=== PATIENT | male | born 1990 | race Caucasian/White ===

== ENCOUNTER → 2016-10-17 07:18 | Emergency (ER) | payer BC ==
[~2016-10-17 07:18] MED LIST: Azithromycin TAB* 250 MG PO ONE; Ketorolac INJ* 30 MG/ML 1 ML VIAL IV ONE; Morphine INJ* 4 MG/ML 1 ML SYRINGE IV ONE; oxyCODONE/Acetamin 5/325 MG* TAB PO ONE
[2016-10-17 08:18] LABS: Hematocrit 43 % (42-52); Hemoglobin 14.7 g/dl (14.0-18.0); Mean Corpuscular HGB Conc 34 g/dl (31-36); Mean Corpuscular Hemoglobin 31 pg (27-31); Mean Corpuscular Volume 91 fL (80-94); Mean Platelet Volume 9 um3 (7.4-10.4); Red Blood Count 4.75 10^6/ul (4.0-5.4); Red Cell Distribution Width 14 % (10.5-15); White Blood Count 7.4 10^3/ul (3.5-10.8)
[2016-10-17 08:36] LABS: ALT 17 U/L (7-52); AST 12 U/L (13-39); Albumin 4.3 g/dL (3.2-5.2); Alkaline Phosphatase 46 U/L (34-104); Anion Gap 5 mmol/L (2-11); Blood Urea Nitrogen 18 mg/dL (6-24); C Reactive Protein < 1.00 mg/L (< 5.00); CO2 Carbon Dioxide 27 mmol/L (22-32); Calcium 9.3 mg/dL (8.6-10.3); Chloride 102 mmol/L (101-111); EGFR African American 110.4 (>60); EGFR Non-African American 85.8 (>60); Globulin 2.4 g/dL (2-4); Glucose 90 mg/dL (70-100); Lipase 29 U/L (11.0-82.0); Sodium 134 mmol/L (133-145); Total Protein 6.7 g/dL (6.4-8.9)
--- NOTE | 2016-10-17 08:58 | RAD ---
Indication: LEFT inguinal pain. Assess for lymph node or cyst. Comparison: July 17, 2015 CT. Technique: Ultrasound of the LEFT inguinal region corresponding with the palpable lump. Report: Corresponding with the palpable lump a 1.0 x 0.7 x 1.0 cm wider than tall well-circumscribed partially anechoic lesion with low-level internal echoes devoid of intrinsic vascularity is identified with a well-defined posterior wall and posterior acoustic enhancement. The constellation of findings is consistent with a mildly complex cyst. This cyst appears within the inguinal canal. No bowel loops or other additional abnormality within the inguinal canal visualized. No adjacent lesions evident. IMPRESSION: 1.0 cm maximum dimension mildly complex cystic lesion within the LEFT inguinal canal. No corresponding abnormality evident on the July 17, 2015 CT. Correlate with clinical assessment and consider surgical versus urologic referral as deemed appropriate.
[2016-10-17 09:59] LABS: Urine Bacteria Absent (Absent); Urine Bilirubin Negative (Negative); Urine Glucose Negative (Negative); Urine Nitrite Negative (Negative)
[2016-10-17 11:58] VITALS: BP 120/74
--- NOTE | 2016-10-18 08:49 | ED ---
Donnie Auguste Alfonso, scribed for Chano Lopes MD on 10/17/16 at 0727 . Skin Complaint - HPI Summary HPI Summary: This patient is a 26 year old M presenting to [facility] with a chief complaint of a hernia or cyst at the LLQ abdomen since two weeks ago. Pt rates the pain 8/ 10 in severity. Symptoms aggravated and alleviated by nothing. Sx not alleviated by ibuprofen. Pt reports insomnia and swelling at the site. Pt denies penile discharge. PSHx of appendectomy last year. - History of Current Complaint Chief Complaint: EDRashSkinAbscess Stated Complaint: ABSCESS Hx Obtained From: Patient Onset/Duration: Started Weeks Ago - 2, Still Present Timing: Constant Onset Severity: Severe Current Severity: Severe Pain Intensity: 8 Pain Scale Used: 0-10 Numeric Skin Location: Abdomen - LLQ Character: Swelling Aggravating Symptom(s): Nothing Alleviating Symptom(s): Nothing - Additional Pertinent History Primary Care Physician: [id number] - Allergy/Home Medications Allergies/Adverse Reactions: Allergies Allergy/AdvReac Type Severity Reaction Status Date / Time Sucralfate [From Carafate] Allergy Hives Verified 07/16/15 21:53 PMH/Surg Hx/FS Hx/Imm Hx Endocrine/Hematology History: Denies: Hx Diabetes Cardiovascular History: Denies: Hx Congestive Heart Failure, Hx Hypertension Respiratory History: Reports: Hx Asthma - as a child, no longer has, Hx Seasonal Allergies GI History: Reports: Other GI Disorders - HX OF ULCERS History: Denies: Hx Renal Disease Musculoskeletal History: Reports: Hx Arthritis - right knee, Hx Tendonitis - left knee - Surgical History Surgery Procedure, Year, and Place: Appendectomy Infectious Disease History: Denies: Traveled Outside the [place] in Last 30 Days - Family History Known Family History: Positive: None - reviewed & noncontributory, Seizure Disorder, Other - CVA, - Social History Alcohol Use: Occasionally Hx Substance Use: No Substance Use Type: Reports: None Hx Tobacco Use: Yes Smoking Status (MU): Former Smoker Review of Systems Negative: Fever Genitourinary: Other - Negative penile discharge. Skin: Other - Positive LLQ "a hernia or cyst" with swelling at the site. Neurological: Other - Positive insomnia All Other Systems Reviewed And Are Negative: Yes Physical Exam - Summary Physical Exam Summary: VITAL SIGNS: Reviewed. GENERAL: Patient is a well-developed and nourished male who is lying comfortable in the stretcher. Patient is not in any acute respiratory distress. HEAD AND FACE: No signs of trauma. No ecchymosis, hematomas or skull depressions. No sinus tenderness. EYES: PERRLA, EOMI x 2, No injected conjunctiva, no nystagmus. EARS: Hearing grossly intact. Ear canals and tympanic membranes are within normal limits. MOUTH: Oropharynx within normal limits. NECK: Supple, trachea is midline, no adenopathy, no JVD, no carotid bruit, no c- spine tenderness, neck with full ROM. CHEST: Symmetric, no tenderness at palpation LUNGS: Clear to auscultation bilaterally. No wheezing or crackles. CVS: Regular rate and rhythm, S1 and S2 present, no murmurs or gallops appreciated. ABDOMEN: Soft, non-tender. No signs of distention. No rebound no guarding, and no masses palpated. Bowel sounds are normal. EXTREMITIES: FROM in all major joints, no edema, no cyanosis or clubbing. NEURO: Alert and oriented x 3. No acute neurological deficits. Speech is normal and follows commands. SKIN: Dry and warm. Positive swollen and tender lymph node in left inguinal area. : Circumcised penis, both testicles are descended. No masses are appreciated. Positive cremasteric reflex. Triage Information Reviewed: Yes Vital Signs On Initial Exam: Initial Vitals Temp Pulse Resp BP Pulse Ox 97.3 F 59 16 125/65 100 10/17/16 07:19 10/17/16 07:19 10/17/16 07:19 10/17/16 07:19 10/17/16 07:19 Vital Signs Reviewed: Yes Diagnostics - Vital Signs Vital Signs Temp Pulse Resp BP Pulse Ox 10/17/16 07:19 97.3 F 59 16 125/65 100 - Laboratory Lab Results: Lab Results 10/17/16 10/17/16 10/17/16 Range/Units 08:00 08:00 08:00 WBC 7.4 (3.5-10.8) 10^3/ul RBC 4.75 (4.0-5.4) 10^6/ul Hgb 14.7 (14.0-18.0) g/dl Hct 43 (42-52) % MCV 91 (80-94) fL MCH 31 (27-31) pg MCHC 34 (31-36) g/dl RDW 14 (10.5-15) % Plt Count 270 (150-450) 10^3/ul MPV 9 (7.4-10.4) um3 Neut % (Auto) 55.9 (38-83) % Lymph % (Auto) 35.1 (25-47) % [place] % (Auto) 4.8 (1-9) % Eos % (Auto) 3.6 (0-6) % Baso % (Auto) 0.6 (0-2) % Absolute Neuts (auto) 4.1 (1.5-7.7) 10^3/ul Absolute Lymphs (auto) 2.6 (1.0-4.8) 10^3/ul Absolute Monos (auto) 0.4 (0-0.8) 10^3/ul Absolute Eos (auto) 0.3 (0-0.6) 10^3/ul Absolute Basos (auto) 0 (0-0.2) 10^3/ul Absolute Nucleated RBC 0 10^3/ul Nucleated RBC % 0 Sodium 134 (133-145) mmol/L Potassium 4.0 (3.5-5.0) mmol/L Chloride 102 (101-111) mmol/L Carbon Dioxide 27 (22-32) mmol/L Anion Gap 5 (2-11) mmol/L BUN 18 (6-24) mg/dL Creatinine 1.06 (0.67-1.17) mg/dL Est GFR ( Amer) 110.4 (>60) Est GFR (Non-Af Amer) 85.8 (>60) BUN/Creatinine Ratio 17.0 (8-20) Glucose 90 (70-100) mg/dL Lactic Acid 0.7 (0.5-2.0) mmol/L Calcium 9.3 (8.6-10.3) mg/dL Total Bilirubin 0.50 (0.2-1.0) mg/dL AST 12 L (13-39) U/L ALT 17 (7-52) U/L Alkaline Phosphatase 46 (34-104) U/L C-Reactive Protein < 1.00 (< 5.00) mg/L Total Protein 6.7 (6.4-8.9) g/dL Albumin 4.3 (3.2-5.2) g/dL Globulin 2.4 (2-4) g/dL Albumin/Globulin Ratio 1.8 (1-3) Lipase 29 (11.0-82.0) U/L Urine Color Urine Appearance Urine pH (5-9) Ur Specific [place] (1.010-1.030) Urine Protein (Negative) Urine Ketones (Negative) Urine Blood (Negative) Urine Nitrate (Negative) Urine Bilirubin (Negative) Urine Urobilinogen (Negative) Ur Leukocyte Esterase (Negative) Urine WBC (Auto) (Absent) Urine RBC (Auto) (Absent) Urine Bacteria (Absent) Urine Glucose (Negative) 10/17/16 Range/Units 08:45 WBC (3.5-10.8) 10^3/ul RBC (4.0-5.4) 10^6/ul Hgb (14.0-18.0) g/dl Hct (42-52) % MCV (80-94) fL MCH (27-31) pg MCHC (31-36) g/dl RDW (10.5-15) % Plt Count (150-450) 10^3/ul MPV (7.4-10.4) um3 Neut % (Auto) (38-83) % Lymph % (Auto) (25-47) % [place] % (Auto) (1-9) % Eos % (Auto) (0-6) % Baso % (Auto) (0-2) % Absolute Neuts (auto) (1.5-7.7) 10^3/ul Absolute Lymphs (auto) (1.0-4.8) 10^3/ul Absolute Monos (auto) (0-0.8) 10^3/ul Absolute Eos (auto) (0-0.6) 10^3/ul Absolute Basos (auto) (0-0.2) 10^3/ul Absolute Nucleated RBC 10^3/ul Nucleated RBC % Sodium (133-145) mmol/L Potassium (3.5-5.0) mmol/L Chloride (101-111) mmol/L Carbon Dioxide (22-32) mmol/L Anion Gap (2-11) mmol/L BUN (6-24) mg/dL Creatinine (0.67-1.17) mg/dL Est GFR ( Amer) (>60) Est GFR (Non-Af Amer) (>60) BUN/Creatinine Ratio (8-20) Glucose (70-100) mg/dL Lactic Acid (0.5-2.0) mmol/L Calcium (8.6-10.3) mg/dL Total Bilirubin (0.2-1.0) mg/dL AST (13-39) U/L ALT (7-52) U/L Alkaline Phosphatase (34-104) U/L C-Reactive Protein (< 5.00) mg/L Total Protein (6.4-8.9) g/dL Albumin (3.2-5.2) g/dL Globulin (2-4) g/dL Albumin/Globulin Ratio (1-3) Lipase (11.0-82.0) U/L Urine Color Yellow Urine Appearance Clear Urine pH 5.0 (5-9) Ur Specific [place] 1.020 (1.010-1.030) Urine Protein Negative (Negative) Urine Ketones Negative (Negative) Urine Blood Negative (Negative) Urine Nitrate Negative (Negative) Urine Bilirubin Negative (Negative) Urine Urobilinogen Negative (Negative) Ur Leukocyte Esterase Trace H (Negative) Urine WBC (Auto) Trace(0-5/hpf) (Absent) Urine RBC (Auto) Absent (Absent) Urine Bacteria Absent (Absent) Urine Glucose Negative (Negative) Result Diagrams: 10/17/16 08:00 10/17/16 08:00 Lab Statement: Any lab studies that have been ordered have been reviewed, and results considered in the medical decision making process. - Additional Comments Diagnostic Additional Comments: Soft tissue US reveals, per radiologist, 1.0 cm maximum dimension mildly complex cystic lesion within the LEFT inguinal canal. No corresponding abnormality evident on the July 17, 2015 CT. Correlate with clinical assessment and consider surgical versus urologic referral as deemed appropriate. Course/Dx - Course Course Of Treatment: This patient is a 26 year old M presenting to [facility] with a chief complaint of a hernia or cyst at the LLQ abdomen since two weeks ago. Pt rates the pain 8/10 in severity. Symptoms aggravated and alleviated by nothing. Sx not alleviated by ibuprofen. Pt reports insomnia and swelling at the site. Pt denies penile discharge. PSHx of appendectomy last year. Assessment/Plan: Test results within normal limits. There is no increased blood cell count and CRP is normal. Soft tissue US reveals, per radiologist, 1.0 cm maximum dimension mildly complex cystic lesion within the LEFT inguinal canal. No corresponding abnormality evident on the July 17, 2015 CT. Correlate with clinical assessment and consider surgical versus urologic referral as deemed appropriate. Patient denied any penile discharge and no complaints with testicular pain. The patient has a cat at home. Therefore, the patient may be dealing with scratch cat syndrome with the painful lymph node in the left inguinal area. I discussed the case with Dr. Reeder and he agrees. He will be discharged home with azithromycin and pain medication. Patient will follow up with PCP and if needed with Dr. Reeder. Patient is hemodynamically stable and A& Ox3. I discussed all the findings and test results with the patient. Patient was instructed to return to the emergency room immediately if any of the symptoms return or worsens. Plan of care was discussed with the patient and understands and agrees. All questions were answered at patient satisfaction. There were no further complaints or concerns. Lung exam before discharge: CTA B /L. Good air exchange. No wheezing or crackles heard. CVS: S1 and S2 present. No murmurs appreciated. Patient is alert and oriented x 3. Patient is hemodynamically stable. Patient will be discharged home with follow up PCP in the next 2-3 days - Diagnoses Provider Diagnoses: Lymph node pain - Physician Notifications Discussed Care Of Patient With: Brayden Reeder Time Discussed With Above Provider: 11:20 Instructed by Provider To: Other - Dr. Reeder ([facility]) recommended d/c home after evaluating patient in the ED. Discharge - Discharge Plan Condition: Stable Disposition: HOME Prescriptions: Azithromycin TAB* [Zithromax TAB (Z-KARY) 250 mg #6 tabs] 250 mg PO DAILY #4 tab Hydrocodone-Acetaminophen [Isabella 5-325 mg] 1 tab PO Q6H PRN #10 tab MDD 4 PRN Reason: Pain Patient Education Materials: Lymphadenopathy (ED) Referrals: [facility] [place] PHYSICIAN REFERRAL [Outside] - 2 Days The documentation as recorded by the Donnie euceda Alfonso accurately reflects the service I personally performed and the decisions made by me, Chano Lopes MD.
== END | disposition home or self-care (01) ==
LOC: ED 07:18
DX: R19.09 Other intra-abdominal and pelvic swelling, mass and lump (principal)
CPT/HCPCS: 36415; 80053; 81003; 81015; 83605; 83690; 85025; 86140; 87040; 87086; 96374; 96375; 99282; A9270-GY; J1885

== ENCOUNTER 2017-05-26 22:01 | Emergency (ER) | payer BC ==
[2017-05-27] MEDS ORDERED: Al Hydrox/Mg Hydrox/Simet LIQ* 30 ML UDC PO ONE ×2 (00:30→00:47)
[2017-05-27] MEDS ORDERED: Al Hydrox/Mg Hydrox/Simet LIQ* 30 ML UDC ONE (00:32)
[2017-05-27] MEDS ORDERED: NS 0.9% 1000 ML* 1,000 ML IV ONE ×2 (00:47→02:27)
[2017-05-27] MEDS ORDERED: Famotidine IV* 10 MG/ML 2 ML (20 mg) IV ONE (00:47)
[2017-05-27] MEDS ORDERED: Ondansetron INJ* 2 MG/ML VIAL IV ONE (00:49)
[2017-05-27 01:46] LABS: ABS Basophils 0 10^3/ul (0-0.2); ABS Eosinophils 0.1 10^3/ul (0-0.6); ABS Monocytes 0.4 10^3/ul (0-0.8); ABS Nucleated RBC 0 10^3/ul; Eosinophil % 0.6 % (0-6); Hematocrit 45 % (42-52); Hemoglobin 15.3 g/dl (14.0-18.0); Lymphocyte % 7.7 % (25-47); Mean Corpuscular HGB Conc 34 g/dl (31-36); Mean Corpuscular Hemoglobin 31 pg (27-31); Mean Corpuscular Volume 90 fL (80-94); Mean Platelet Volume 9 um3 (7.4-10.4); Nucleated Red Blood Cells % 0; Platelet Count 291 10^3/ul (150-450); Red Blood Count 5.03 10^6/ul (4.0-5.4); Red Cell Distribution Width 14 % (10.5-15); White Blood Count 12.5 10^3/ul (3.5-10.8)
--- NOTE | 2017-05-27 01:54 | ED ---
Abdominal Pain/Male - HPI Summary HPI Summary: Patient presents to the ED with chief complaint of epigastric pain, nausea, vomiting since 4:30 this afternoon. History of ulcer diagnosed 11 years ago. He takes omeprazole 40 mg daily. He has been seen in the ED for this reason before. He states that usually manifests as epigastric pain and nausea, but rarely vomiting. He had one episode last month of nausea, vomiting and epigastric pain. He states that in the ED he had an EKG done and was told it was "pancreas related." He drinks alcohol approximately once per month. He does not see a GI physician. The epigastric pain never radiates to the back. He has been worked up for cardiac issues and always negative. He denies fevers , sweats, chills, diarrhea, constipation. Denies any recent illness. He states this occurs approximately once every few months, but it usually only lasts several hours, this episode lasting approximately 8 hours so wanted to make sure he was not dehydrated. Symptoms are aggravated by food and alleviated by nothing. - History of Current Complaint Chief Complaint: EDAbdPain Stated Complaint: VOMITING Time Seen by Provider: 05/27/17 00:30 Hx Obtained From: Patient Onset/Duration: Sudden Onset Timing: Constant Severity Initially: Moderate Severity Currently: Moderate Pain Intensity: 7 Pain Scale Used: 0-10 Numeric Location: Epigastric Radiates: No Character: Sharp, Burning Aggravating Factor(s): Food Associated Signs And Symptoms: Positive: Vomiting - Allergies/Home Medications Allergies/Adverse Reactions: Allergies Allergy/AdvReac Type Severity Reaction Status Date / Time sucralfate AdvReac Intermediate Hives Verified 05/27/17 03:53 PMH/Surg Hx/FS Hx/Imm Hx Previously Healthy: Yes Endocrine/Hematology History: Denies: Hx Diabetes Cardiovascular History: Denies: Hx Congestive Heart Failure, Hx Hypertension Respiratory History: Reports: Hx Asthma - as a child, no longer has, Hx Seasonal Allergies GI History: Reports: Other GI Disorders - HX OF ULCERS History: Denies: Hx Renal Disease Musculoskeletal History: Reports: Hx Arthritis - right knee, Hx Tendonitis - left knee - Surgical History Surgery Procedure, Year, and Place: Appendectomy - Immunization History Hx Pertussis Vaccination: No Immunizations Up to Date: Unable to Obtain/Confirm Infectious Disease History: No Infectious Disease History: Denies: Traveled Outside the [place] in Last 30 Days - Family History Known Family History: Positive: None - reviewed & noncontributory, Seizure Disorder, Other - CVA, - Social History Occupation: Employed Full-time Lives: With Family Alcohol Use: Occasionally Hx Substance Use: No Substance Use Type: Reports: None Hx Tobacco Use: Yes Smoking Status (MU): Former Smoker Review of Systems Constitutional: Negative Negative: Fever, Chills, Fatigue, Skin Diaphoresis Eyes: Negative Cardiovascular: Negative Respiratory: Negative Positive: Abdominal Pain, Vomiting, Nausea Genitourinary: Negative Positive: no symptoms reported, see HPI Neurological: Negative All Other Systems Reviewed And Are Negative: Yes Physical Exam Triage Information Reviewed: Yes Vital Signs On Initial Exam: Initial Vitals Temp Pulse Resp BP Pulse Ox 98.6 F 88 20 118/79 100 05/26/17 22:21 05/26/17 22:21 05/26/17 22:21 05/26/17 22:21 05/26/17 22:21 Vital Signs Reviewed: Yes Appearance: Positive: Well-Appearing, Well-Nourished Skin: Positive: Warm, Skin Color Reflects Adequate Perfusion Head/Face: Positive: Normal Head/Face Inspection Eyes: Positive: EOMI, NAA Neck: Positive: Supple, No Lymphadenopathy Respiratory/Lung Sounds: Positive: Clear to Auscultation, Breath Sounds Present Cardiovascular: Positive: RRR, Pulses are Symmetrical in both Upper and Lower Extremities Musculoskeletal: Positive: Strength/ROM Intact Neurological: Positive: Speech Normal Psychiatric: Positive: Normal, Affect/Mood Appropriate AVPU Assessment: Alert Diagnostics - Vital Signs Vital Signs Temp Pulse Resp BP Pulse Ox 05/27/17 01:30 65 119/72 100 05/27/17 01:26 70 100 05/27/17 01:24 101/74 05/26/17 22:21 98.6 F 88 20 118/79 100 - Laboratory Lab Results: Lab Results 05/27/17 Range/Units 01:29 WBC 12.5 H (3.5-10.8) 10^3/ul RBC 5.03 (4.0-5.4) 10^6/ul Hgb 15.3 (14.0-18.0) g/dl Hct 45 (42-52) % MCV 90 (80-94) fL MCH 31 (27-31) pg MCHC 34 (31-36) g/dl RDW 14 (10.5-15) % Plt Count 291 (150-450) 10^3/ul MPV 9 (7.4-10.4) um3 Neut % (Auto) 88.1 H (38-83) % Lymph % (Auto) 7.7 L (25-47) % [place] % (Auto) 3.4 (0-7) % Eos % (Auto) 0.6 (0-6) % Baso % (Auto) 0.2 (0-2) % Absolute Neuts (auto) 11.0 H (1.5-7.7) 10^3/ul Absolute Lymphs (auto) 1.0 (1.0-4.8) 10^3/ul Absolute Monos (auto) 0.4 (0-0.8) 10^3/ul Absolute Eos (auto) 0.1 (0-0.6) 10^3/ul Absolute Basos (auto) 0 (0-0.2) 10^3/ul Absolute Nucleated RBC 0 10^3/ul Nucleated RBC % 0 Result Diagrams: 05/27/17 01:29 05/27/17 01:29 Lab Statement: Any lab studies that have been ordered have been reviewed, and results considered in the medical decision making process. Abdominal Pain Fem Course/Dx - Course Course Of Treatment: During the course of treatment the patient was evaluated for epigastric pain secondary to testicles are diagnosed 11 years ago but has not followed up since. He takes omeprazole 40 mg daily. He usually has one episode every 4-6 months of epigastric pain associated with nausea and intermittent vomiting which only lasts a few hours. This time, episodes have lasted approximately 8 hours. He denies having any any recent CT scans. Denies constipation, diarrhea, any other abdominal pain. Denies any abdominal surgeries. Labs obtained, 1 L fluids given, 2 mg Maalox given on arrival and he proceeded to vomit most of that up. He is given another 30 mg cc. Pepcid 40 mg IV and Zofran 4 mg. he continues to remain nauseous and vomiting. He is given another liter of fluids and Reglan 10 mg IV. Labs obtained and are all within normal limits except for a slightly elevated white count at 12.5. Signed out to Dr. Hernandez at 2:30a pending improvement of symptoms. Discharge papers printed. - Diagnoses Differential Diagnosis/HQI/PQRI: Pancreatitis, Peptic Ulcer Disease Provider Diagnoses: Peptic ulcer Discharge - Discharge Plan Condition: Stable Disposition: HOME Prescriptions: Ondansetron ODT TAB* [Zofran 4 MG Odt TAB*] 4 mg PO Q6H PRN #12 tab.odt MDD 4 PRN Reason: Nausea Patient Education Materials: Cyclic Vomiting Syndrome (ED) Referrals: Ji Almanza MD [Medical Doctor] - Cruz Eaton MD [Primary Care Provider] - Additional Instructions: Please follow-up with GI doctor Cami As discussed, I believe this may be a cyclic vomiting syndrome I have given you Zofran for nausea and vomiting Drink plenty of fluids Maalox plus is [id number], 30 mls every 4 hours for any epigastric pain
[2017-05-27] MEDS ORDERED: Metoclopramide IV* 5 MG/ML 2 ML VIAL IV ONE (02:01)
[2017-05-27] MEDS ORDERED: PROCHLORPERAZINE INJ 5 MG/ML 2 ML VIAL IV ONE (02:21)
[2017-05-27] MEDS ORDERED: diPHENhydraMINE IV* 50 MG/ML 1 ml VIAL (BENADRYL) IV ONE (02:26)
[2017-05-27] MEDS ORDERED: Ketorolac INJ* 30 MG/ML 1 ML VIAL IV PUSH ONE (02:26)
[2017-05-27 05:33] VITALS: BP 103/43
== END 2017-05-27 05:40 | disposition home or self-care (01) ==
LOC: ED 22:01
DX: R10.13 Epigastric pain (principal); R11.2 Nausea with vomiting, unspecified; Z87.19 Personal history of other diseases of the digestive system; Z88.8 Allergy status to other drugs, medicaments and biological substances; Z87.891 Personal history of nicotine dependence
CPT/HCPCS: 36415; 80053; 82150; 82550; 83605; 83690; 83735; 85025; 86140; 96361; 96374; 96375; 99285; A9270-GY; J0780; J1200; J1885; J2405

== ENCOUNTER 2017-07-16 17:57 | Emergency (ER) | payer BC ==
[2017-07-16 20:38] LABS: ABS Basophils 0 10^3/ul (0-0.2); ABS Eosinophils 0 10^3/ul (0-0.6); ABS Lymphocytes 1.1 10^3/ul (1.0-4.8); ABS Monocytes 0.4 10^3/ul (0-0.8); ABS Neutrophils 8.5 10^3/ul (1.5-7.7); ABS Nucleated RBC 0 10^3/ul; Eosinophil % 0.4 % (0-6); Hematocrit 45 % (42-52); Hemoglobin 15.7 g/dl (14.0-18.0); Lymphocyte % 10.9 % (25-47); Mean Corpuscular HGB Conc 35 g/dl (31-36); Mean Corpuscular Hemoglobin 31 pg (27-31); Mean Corpuscular Volume 88 fL (80-94); Mean Platelet Volume 8.6 um3 (7.4-10.4); Nucleated Red Blood Cells % 0; Platelet Count 278 10^3/ul (150-450); Red Blood Count 5.07 10^6/ul (4.0-5.4); Red Cell Distribution Width 14 % (10.5-15); White Blood Count 10.1 10^3/ul (3.5-10.8)
[2017-07-16] MEDS ORDERED: NS 0.9% 1000 ML* 1,000 ML IV ONE (20:41)
[2017-07-16] MEDS ORDERED: Metoclopramide IV* 5 MG/ML 2 ML VIAL IV SLOW PU ONE (20:43)
[2017-07-16] MEDS ORDERED: Morphine VIAL* 4 MG/ML VIAL (1 ml vial) IV ONE (20:43)
[2017-07-16 20:54] LABS: EGFR Non-African American 73.8 (>60)
--- NOTE | 2017-07-16 21:20 | RAD ---
INDICATION: Chest pain. COMPARISON: Comparison is made with a prior study from April 08, 2013. TECHNIQUE: A portable view of the chest was obtained. FINDINGS: Cardiac and mediastinal contours appear to be within normal limits. The lungs are clear. No pleural effusion is seen. IMPRESSION: NO EVIDENCE FOR ACUTE DISEASE.
--- NOTE | 2017-07-17 00:07 | ED ---
Kathy Auguste Thomas, scribed for Rupesh Hernandez MD on 07/16/17 at 2056 . HPI Chest Pain - HPI Summary HPI Summary: The patient is a 27 year old male complaining of sharp central chest pain upon inspiration that woke him up this morning at 02:00. The chest pain had radiation to his jaw earlier in the day. He began to vomit at 09:00 today. He is nauseous in the ED. - History of Current Complaint Chief Complaint: EDChestPainROMI Time Seen by Provider: 07/16/17 20:33 Hx Obtained From: Patient Onset/Duration: Started Hours Ago, Still Present Timing: Constant Current Severity: Severe Pain Intensity: 9 Pain Scale Used: 0-10 Numeric Chest Pain Location: Discrete at: - central Chest Pain Radiates: Yes Chest Pain Radiates To:: Jaw Character: Sharp/Stabbing Aggravating Factor(s): Nothing Alleviating Factor(s): Nothing Associated Signs and Symptoms: Positive: Chest Pain, Nausea, Vomiting. Negative : Fever - Additional Pertinent History Primary Care Physician: MARLENA - Allergy/Home Medications Allergies/Adverse Reactions: Allergies Allergy/AdvReac Type Severity Reaction Status Date / Time sucralfate AdvReac Intermediate Hives Verified 05/27/17 03:53 Home Medications: Home Medications LoraTADine TAB(NF) [Claritin 10 MG TAB(NF)] 10 mg PO DAILY 07/16/17 [History Confirmed 07/16/17] Omeprazole CAP* [Prilosec CAP* 20 MG] 20 mg PO DAILY 07/16/17 [History Confirmed 07/16/17] PMH/Surg Hx/FS Hx/Imm Hx Endocrine/Hematology History: Denies: Hx Diabetes Cardiovascular History: Denies: Hx Congestive Heart Failure, Hx Hypertension Respiratory History: Reports: Hx Asthma - as a child, no longer has, Hx Seasonal Allergies GI History: Reports: Other GI Disorders - HX OF ULCERS History: Denies: Hx Renal Disease Musculoskeletal History: Reports: Hx Arthritis - right knee, Hx Tendonitis - left knee - Surgical History Surgery Procedure, Year, and Place: Appendectomy Infectious Disease History: No Infectious Disease History: Denies: Traveled Outside the [place] in Last 30 Days - Family History Known Family History: Positive: Seizure Disorder, Other - CVA - Social History Alcohol Use: Occasionally Hx Substance Use: No Substance Use Type: Reports: None Hx Tobacco Use: Yes Smoking Status (MU): Former Smoker Review of Systems Negative: Fever Positive: Chest Pain Positive: Vomiting, Nausea All Other Systems Reviewed And Are Negative: Yes Physical Exam - Summary Physical Exam Summary: VITAL SIGNS: Reviewed. GENERAL: Patient is a well-developed and nourished male who is lying comfortable in the stretcher. Patient is not in any acute respiratory distress. HEAD AND FACE: No signs of trauma. No ecchymosis, hematomas or skull depressions. No sinus tenderness. EYES: PERRLA, EOMI x 2, No injected conjunctiva, no nystagmus. EARS: Hearing grossly intact. Ear canals and tympanic membranes are within normal limits. MOUTH: Oropharynx within normal limits. NECK: Supple, trachea is midline, no adenopathy, no JVD, no carotid bruit, no c- spine tenderness, neck with full ROM. CHEST: Symmetric, no tenderness at palpation LUNGS: Clear to auscultation bilaterally. No wheezing or crackles. CVS: Regular rate and rhythm, S1 and S2 present, no murmurs or gallops appreciated. ABDOMEN: Soft. He has epigastric tenderness. No signs of distention. No rebound no guarding, and no masses palpated. Bowel sounds are normal. EXTREMITIES: FROM in all major joints, no edema, no cyanosis or clubbing. NEURO: Alert and oriented x 3. No acute neurological deficits. Speech is normal and follows commands. SKIN: Dry and warm Triage Information Reviewed: Yes Vital Signs On Initial Exam: Initial Vitals Temp Pulse Resp BP Pulse Ox 100.8 F 104 20 145/69 98 07/16/17 18:01 07/16/17 18:01 07/16/17 18:01 07/16/17 18:01 07/16/17 18:01 Vital Signs Reviewed: Yes Diagnostics - Vital Signs Vital Signs Temp Pulse Resp BP Pulse Ox 07/16/17 20:29 85 15 100 07/16/17 20:03 99.9 F 100 18 127/65 100 07/16/17 18:01 100.8 F 104 20 145/69 98 - Laboratory Lab Results: Lab Results 07/16/17 Range/Units 20:25 WBC 10.1 (3.5-10.8) 10^3/ul RBC 5.07 (4.0-5.4) 10^6/ul Hgb 15.7 (14.0-18.0) g/dl Hct 45 (42-52) % MCV 88 (80-94) fL MCH 31 (27-31) pg MCHC 35 (31-36) g/dl RDW 14 (10.5-15) % Plt Count 278 (150-450) 10^3/ul MPV 8.6 (7.4-10.4) um3 Neut % (Auto) 84.1 H (38-83) % Lymph % (Auto) 10.9 L (25-47) % [place] % (Auto) 4.4 (0-7) % Eos % (Auto) 0.4 (0-6) % Baso % (Auto) 0.2 (0-2) % Absolute Neuts (auto) 8.5 H (1.5-7.7) 10^3/ul Absolute Lymphs (auto) 1.1 (1.0-4.8) 10^3/ul Absolute Monos (auto) 0.4 (0-0.8) 10^3/ul Absolute Eos (auto) 0 (0-0.6) 10^3/ul Absolute Basos (auto) 0 (0-0.2) 10^3/ul Absolute Nucleated RBC 0 10^3/ul Nucleated RBC % 0 Result Diagrams: 07/16/17 20:25 07/16/17 20:25 Lab Statement: Any lab studies that have been ordered have been reviewed, and results considered in the medical decision making process. - Radiology CXR Xray Interpretation: No Acute Changes - Impression: No evidence for acute disease. Dr. Hernandez has reviewed this report. Radiology Interpretation Completed By: Radiologist - EKG 18:06 Cardiac Rate: NL EKG Rhythm: Sinus Rhythm - at 97 BPM Re-Evaluation - Re-Evaluation First Eval Re-Evaluation Time: 23:49 Change: Improved Comment: The patient feels better. Chest Pain Course/Dx - Course Assessment/Plan: The patient is a 27 year old male complaining of sharp central chest pain upon inspiration that woke him up this morning at 02:00. He also complains of nausea and vomiting. In the ED course, the patient was given IV fluids, Reglan, and morphine. Bloodwork, EKG, and CXR were obtained. The patient feels better at re-evaluation. He will be discharged home. The patient is diagnosed with vomiting and atypical chest pain. The patient is instructed to follow up with primary care. - Diagnoses Provider Diagnoses: Atypical chest pain, Vomiting Discharge - Sign-Out/Discharge Documenting (check all that apply): Discharge - Discharge Plan Condition: Stable Disposition: HOME Patient Education Materials: Chest Pain (ED), Acute Nausea and Vomiting (ED) Referrals: Cruz Eaton MD [Primary Care Provider] - 2 Days Additional Instructions: Follow up with your primary care physician in one to two days. Return to the emergency department for any new or worsening symptoms. The documentation as recorded by the Kathy euceda Thomas accurately reflects the service I personally performed and the decisions made by me, Rupesh Hernandez MD.
[2017-07-17 00:58] VITALS: BP 135/68
== END 2017-07-17 01:00 | disposition home or self-care (01) ==
LOC: ED 17:57
DX: R07.89 Other chest pain (principal); R11.2 Nausea with vomiting, unspecified; J45.909 Unspecified asthma, uncomplicated; Z88.8 Allergy status to other drugs, medicaments and biological substances; Z87.891 Personal history of nicotine dependence
CPT/HCPCS: 36415; 71045; 80053; 84484; 85025; 93005; 96374; 96375; 99284; J2270; J2765

== ENCOUNTER 2017-09-07 06:19 | Emergency (ER) | payer BC ==
[2017-09-07] MEDS ORDERED: NS 0.9% 1000 ML* 1,000 ML IV ONE (06:53)
[2017-09-07] MEDS ORDERED: Al Hydrox/Mg Hydrox/Simet LIQ* 30 ML UDC PO ONE (07:02)
[2017-09-07] MEDS ORDERED: Metoclopramide IV* 5 MG/ML 2 ML VIAL IV ONE (07:02)
[2017-09-07] MEDS ORDERED: Lidocaine 2% VISCOUS* 15 ML UDC PO ONE (07:02)
--- NOTE | 2017-09-07 07:15 | ED ---
GI/ HPI - HPI Summary HPI Summary: Pt. is a 27-year-old male who presents emergency department for nausea, vomiting and headache that started last night. Patient states he has a history of gastric ulcer and is currently taking omeprazole. He's been seen in the ER numerous times for similar symptoms. Patient states headache is new for him. Headache started after vomiting. Denies visual changes, numbness, tingling or weakness. It is worse with movement and vomiting. Patient also notes he did drink 5 beers and 1 shot of whiskey last night. He denies daily alcohol consumption. Denies drug use. Symptoms are moderate in severity. No current modifying factors. Otherwise denies recent illness, fever, cough, respiratory symptoms. - History of Current Complaint Hx Obtained From: Patient Pain Intensity: 7 - Additional Pertinent History Primary Care Physician: [id number] <Navneet Palma - Last Filed: 09/07/17 10:15> <Fern Morales - Last Filed: 09/11/17 00:36> - History of Current Complaint Chief Complaint: EDNauseaVomitDiarrh Time Seen by Provider: 09/07/17 06:53 Stated Complaint: VOMITING - Allergy/Home Medications Allergies/Adverse Reactions: Allergies Allergy/AdvReac Type Severity Reaction Status Date / Time sucralfate AdvReac Intermediate Hives Verified 09/07/17 09:03 PMH/Surg Hx/FS Hx/Imm Hx Previously Healthy: Yes Endocrine/Hematology History: Denies: Hx Diabetes Cardiovascular History: Denies: Hx Congestive Heart Failure, Hx Hypertension Respiratory History: Reports: Hx Asthma - as a child, no longer has, Hx Seasonal Allergies GI History: Reports: Other GI Disorders - HX OF ULCERS History: Denies: Hx Renal Disease Musculoskeletal History: Reports: Hx Arthritis - right knee, Hx Tendonitis - left knee - Surgical History Surgery Procedure, Year, and Place: Appendectomy Infectious Disease History: No Infectious Disease History: Denies: Traveled Outside the [place] in Last 30 Days - Family History Known Family History: Positive: None - reviewed & noncontributory, Seizure Disorder, Other - CVA - Social History Occupation: Employed Full-time Lives: With Family Alcohol Use: Occasionally Hx Substance Use: No Substance Use Type: Reports: None Hx Tobacco Use: Yes Smoking Status (MU): Former Smoker <Navneet Palma - Last Filed: 09/07/17 10:15> Review of Systems Constitutional: Negative Negative: Fever, Chills Eyes: Negative ENT: Negative Cardiovascular: Negative Respiratory: Negative Positive: Vomiting, Nausea. Negative: Abdominal Pain Genitourinary: Negative Positive: Headache All Other Systems Reviewed And Are Negative: Yes <Navneet Palma - Last Filed: 09/07/17 10:15> Physical Exam Triage Information Reviewed: Yes Vital Signs On Initial Exam: Initial Vitals Temp Pulse Resp BP Pulse Ox 97.9 F 72 20 132/73 100 09/07/17 06:21 09/07/17 06:21 09/07/17 06:21 09/07/17 06:21 09/07/17 06:21 Vital Signs Reviewed: Yes Appearance: Positive: Well-Appearing - Patient sitting up in bed, appears tired but nontoxic. Significant other present. Skin: Positive: Warm, Dry Head/Face: Positive: Normal Head/Face Inspection Eyes: Positive: Normal, EOMI, ANA ENT: Positive: Other - Mouth has dry lips are chapped Neck: Positive: Supple Respiratory/Lung Sounds: Positive: Clear to Auscultation, Breath Sounds Present Cardiovascular: Positive: Normal, RRR Abdomen Description: Positive: Nontender, Soft. Negative: McBurney's Point Tenderness Bowel Sounds: Positive: Present Neurological: Positive: Normal, CN Intact II-III Psychiatric: Positive: Affect/Mood Appropriate <Navneet Palma - Last Filed: 09/07/17 10:15> Vital Signs On Initial Exam: Initial Vitals Temp Pulse Resp BP Pulse Ox 97.9 F 72 20 132/73 100 09/07/17 06:21 09/07/17 06:21 09/07/17 06:21 09/07/17 06:21 09/07/17 06:21 <Fern Morales - Last Filed: 09/11/17 00:36> Diagnostics - Vital Signs Vital Signs Temp Pulse Resp BP Pulse Ox 09/07/17 06:21 97.9 F 72 20 132/73 100 - Laboratory Result Diagrams: 09/07/17 07:06 09/07/17 07:06 Lab Statement: Any lab studies that have been ordered have been reviewed, and results considered in the medical decision making process. <Navneet Palma - Last Filed: 09/07/17 10:15> - Vital Signs Vital Signs Temp Pulse Resp BP Pulse Ox 09/07/17 09:06 97.8 F 55 16 113/72 98 09/07/17 06:21 97.9 F 72 20 132/73 100 - Laboratory Lab Results: Lab Results 09/07/17 09/07/17 Range/Units 07:06 07:06 WBC 8.8 (3.5-10.8) 10^3/ul RBC 4.48 (4.0-5.4) 10^6/ul Hgb 14.0 (14.0-18.0) g/dl Hct 40 L (42-52) % MCV 89 (80-94) fL MCH 31 (27-31) pg MCHC 35 (31-36) g/dl RDW 14 (10.5-15) % Plt Count 288 (150-450) 10^3/ul MPV 8.5 (7.4-10.4) um3 Neut % (Auto) 70.6 (38-83) % Lymph % (Auto) 20.4 L (25-47) % [place] % (Auto) 6.3 (0-7) % Eos % (Auto) 2.3 (0-6) % Baso % (Auto) 0.4 (0-2) % Absolute Neuts (auto) 6.2 (1.5-7.7) 10^3/ul Absolute Lymphs (auto) 1.8 (1.0-4.8) 10^3/ul Absolute Monos (auto) 0.6 (0-0.8) 10^3/ul Absolute Eos (auto) 0.2 (0-0.6) 10^3/ul Absolute Basos (auto) 0 (0-0.2) 10^3/ul Absolute Nucleated RBC 0 10^3/ul Nucleated RBC % 0 Sodium 140 (139-145) mmol/L Potassium 3.7 (3.5-5.0) mmol/L Chloride 106 (101-111) mmol/L Carbon Dioxide 28 (22-32) mmol/L Anion Gap 6 (2-11) mmol/L BUN 9 (6-24) mg/dL Creatinine 1.07 (0.67-1.17) mg/dL Est GFR ( Amer) 108.3 (>60) Est GFR (Non-Af Amer) 84.2 (>60) BUN/Creatinine Ratio 8.4 (8-20) Glucose 90 (70-100) mg/dL Calcium 9.3 (8.6-10.3) mg/dL Total Bilirubin 0.40 (0.2-1.0) mg/dL AST 13 (13-39) U/L ALT 13 (7-52) U/L Alkaline Phosphatase 57 (34-104) U/L Total Protein 6.7 (6.4-8.9) g/dL Albumin 4.2 (3.2-5.2) g/dL Globulin 2.5 (2-4) g/dL Albumin/Globulin Ratio 1.7 (1-3) Lipase 33 (11.0-82.0) U/L Result Diagrams: 09/07/17 07:06 09/07/17 07:06 Lab Statement: Any lab studies that have been ordered have been reviewed, and results considered in the medical decision making process. <Fern Morales - Last Filed: 09/11/17 00:36> Re-Evaluation - Re-Evaluation First Eval Re-Evaluation Time: 08:10 Change: Improved - Pt. sleeping comfortably. He states he is starting to feel better. Will attempt PO challange. He has had no vomiting in the ED. <Navneet Palma - Last Filed: 09/07/17 10:15> GIGU Course/Dx - Course Course Of Treatment: Patient presenting with nausea, vomiting and headache with history of peptic ulcer disease as well as alcohol consumption last night. He is afebrile with stable vital signs. He is a benign abdominal exam. We'll start on IV fluids and treat with Reglan, Maalox and viscous lidocaine. Pending basic labs. On re-exam pt. is resting comfortably and states he is starting to feel better. He has had no vomiting in the ER. He has been able to keep down water. Will dc home. Advised to continue PPI as directed. Zofran rx if needed. Can also take OTC tums, pepto, maalox, ect. To call PCP tomorrow for an apt. To avoid smoking, etoh, spice, acid. To return to ER if symptoms change or worsen. - Diagnoses Differential Diagnoses - Male: Constipation, Appendicitis, Cholecystitis, Cholelithiasis, Dehydration, Gastritis, Gastroenteritis (Bacterial), Gastroenteritis (Viral), Pancreatitis, Peptic Ulcer Disease, Ureteral Calculi, Vomiting <Navneet Palma - Last Filed: 09/07/17 10:15> <Fern Morales - Last Filed: 09/11/17 00:36> - Diagnoses Provider Diagnoses: Gastritis, Nausea & vomiting Discharge - Sign-Out/Discharge Documenting (check all that apply): Discharge/Admit/Transfer - Billing Disposition and Condition Condition: GOOD Disposition: Home <Navneet Palma - Last Filed: 09/07/17 10:15> - Billing Disposition and Condition Condition: GOOD Disposition: Home <Fern Morales - Last Filed: 09/11/17 00:36> - Discharge Plan Condition: Good Disposition: HOME Prescriptions: Ondansetron TAB* [Zofran 4 MG Tab*] 4 mg PO Q6H PRN #12 tab PRN Reason: Nausea Patient Education Materials: Gastritis (ED) Referrals: Cruz Eaton MD [Primary Care Provider] - Additional Instructions: Call your PCP tomorrow for a follow up appointment Continue omeprazole as directed Zofran as directed for nausea/vomiting Can take over the counter tums, Pepto-Bismol or Maalox for symptomatically relief Avoid alcohol use, smoking, foods high in fats, spice, acid Increase fluids Turned the ER symptoms change or worsen
[2017-09-07 07:17] LABS: ABS Basophils 0 10^3/ul (0-0.2); ABS Eosinophils 0.2 10^3/ul (0-0.6); ABS Lymphocytes 1.8 10^3/ul (1.0-4.8); ABS Monocytes 0.6 10^3/ul (0-0.8); ABS Neutrophils 6.2 10^3/ul (1.5-7.7); ABS Nucleated RBC 0 10^3/ul; Eosinophil % 2.3 % (0-6); Hematocrit 40 % (42-52); Lymphocyte % 20.4 % (25-47); Mean Corpuscular HGB Conc 35 g/dl (31-36); Mean Corpuscular Hemoglobin 31 pg (27-31); Mean Corpuscular Volume 89 fL (80-94); Mean Platelet Volume 8.5 um3 (7.4-10.4); Nucleated Red Blood Cells % 0; Platelet Count 288 10^3/ul (150-450); Red Blood Count 4.48 10^6/ul (4.0-5.4); Red Cell Distribution Width 14 % (10.5-15); White Blood Count 8.8 10^3/ul (3.5-10.8)
[2017-09-07 07:30] LABS: EGFR Non-African American 84.2 (>60)
[2017-09-07 09:09] VITALS: BP 113/72
== END 2017-09-07 09:06 | disposition home or self-care (01) ==
LOC: ED 06:19
DX: K29.70 Gastritis, unspecified, without bleeding (principal); K25.9 Gastric ulcer, unspecified as acute or chronic, without hemorrhage or perforation; Z79.899 Other long term (current) drug therapy; Z87.891 Personal history of nicotine dependence; Z88.8 Allergy status to other drugs, medicaments and biological substances
CPT/HCPCS: 36415; 80053; 83690; 85025; 96374; 99283; A9270-GY; J2765

== ENCOUNTER 2019-04-21 13:22 | Emergency (ER) | payer BC ==
[2019-04-21] MEDS ORDERED: NS 0.9% 1000 ML** 1,000 ML IV ONE (13:51)
[2019-04-21] MEDS ORDERED: Morphine 4 MG/ML VIAL (1 ml) 4 MG/ML VIAL IV ONE ×2 (13:51→14:36)
--- NOTE | 2019-04-21 13:56 | ED ---
Abdominal Pain/Male - HPI Summary HPI Summary: 29 year old M presenting to [facility] complains of bloody stool and sharp pain in the LLQ since an hour ago. Pain has worsened since then and is reported to radiate towards his groin area. Patient reports pain when sitting. He denies fever, chills, and diarrhea. Hx of ulcers for which he is currently on medication for. Patient claims to have Hx of periodic hematemesis but states that he is not vomiting currently. He reports having eaten spicy food on Friday04/19/2019. SHx of chewing tobacco use, occasional alcohol use, and no drug use. PSHx of appendectomy and lymphadenectomy. The patient rates the pain 17/01 in severity. Symptoms aggravated by lying down. Symptoms alleviated by nothing. Medications reviewed. Allergies noted. - History of Current Complaint Chief Complaint: EDGIBleed Stated Complaint: BLOOD IN STOOL Time Seen by Provider: 04/21/19 13:35 Hx Obtained From: Patient Onset/Duration: Sudden Onset, Still Present, Worse Since - an hour ago Timing: Constant Severity Currently: Severe Pain Intensity: 10 Pain Scale Used: 0-10 Numeric Location: Discrete At: LLQ Radiates: Yes Radiates to: Other - groin Character: Sharp Aggravating Factor(s): Other: - Lying down Alleviating Factor(s): Nothing Associated Signs And Symptoms: Positive: Blood in Stool. Negative: Fever, Vomiting, Diarrhea, Other - No chills - Allergies/Home Medications Allergies/Adverse Reactions: Allergies Allergy/AdvReac Type Severity Reaction Status Date / Time sucralfate AdvReac Intermediate Hives Verified 09/07/17 09:03 PMH/Surg Hx/FS Hx/Imm Hx Endocrine/Hematology History: Denies: Hx Diabetes Cardiovascular History: Denies: Hx Congestive Heart Failure, Hx Hypertension Respiratory History: Reports: Hx Asthma - as a child, no longer has, Hx Seasonal Allergies GI History: Reports: Other GI Disorders - HX OF ULCERS History: Denies: Hx Renal Disease Musculoskeletal History: Reports: Hx Arthritis - right knee, Hx Tendonitis - left knee - Surgical History Surgical History: Yes Surgery Procedure, Year, and Place: Appendectomy and lymphadenectomy - Immunization History Date of Tetanus Vaccine: unk Date of Influenza Vaccine: none Infectious Disease History: No Infectious Disease History: Denies: Traveled Outside the [place] in Last 30 Days - Family History Known Family History: Positive: Seizure Disorder, Other - CVA - Social History Alcohol Use: Occasionally Hx Substance Use: No Substance Use Type: Reports: None Hx Tobacco Use: Yes - chewing tobacco Smoking Status (MU): Former Smoker Do You Chew or Dip Tobacco: Yes - chew Review of Systems Negative: Fever, Chills Positive: Abdominal Pain - LLQ and groin, Other - hematochezia. Negative: Vomiting, Diarrhea All Other Systems Reviewed And Are Negative: Yes Physical Exam - Summary Physical Exam Summary: Constitutional: appears to be in pain, well-developed, well-nourished Skin: Warm, Dry HENT: Normocephalic; Atraumatic Eyes: Conjunctiva normal Neck: Musculoskeletal ROM normal neck. (-) JVD, (-) Stridor, (-) Tracheal deviation Cardio: tachycardic Pulmonary/Chest wall: Effort normal. (-) Respiratory distress, (-) Wheezes, (-) Rales Abd: LLQ tenderness with no rebound or guarding Musculoskeletal: (-) Edema Lymph: (-) Cervical adenopathy Neuro: Alert, Oriented x3 Psych: Mood and affect Normal Rectal: brown stool, CLARENCE with no evidence of hemorrhoids or fissure Triage Information Reviewed: Yes Vital Signs On Initial Exam: Initial Vitals Temp Pulse Resp BP Pulse Ox 99.3 F 125 18 135/92 96 04/21/19 13:24 04/21/19 13:24 04/21/19 13:24 04/21/19 13:24 04/21/19 13:24 Vital Signs Reviewed: Yes Procedures - Sedation Patient Received Moderate/Deep Sedation with Procedure: No Diagnostics - Vital Signs Vital Signs Temp Pulse Resp BP Pulse Ox 04/21/19 13:24 99.3 F 125 18 135/92 96 - Laboratory Result Diagrams: 04/21/19 14:02 04/21/19 14:02 Lab Statement: Any lab studies that have been ordered have been reviewed, and results considered in the medical decision making process. - CT Abd/pelvis CT Interpretation Completed By: Radiologist Summary of CT Findings: IMPRESSION: Findings consistent with mesenteric adenitis. No abnormal masses or fluid. collections are noted. Specifically no definite diverticulitis of the sigmoid colon is. noted. ED physician has reviewed this report. Re-Evaluation - Re-Evaluation 1540 Re-Evaluation Time: 15:40 Change: Improved - Feeling better and comfortable with discharge Abdominal Pain Male Course/Dx - Course Course Of Treatment: Patient is here with left lower quadrant pain and rectal bleeding. Patient was tenderness left lower quadrant. Patient had a negative CT scan for any acute process outside of mesenteric adenitis. Patient had a rectal exam which showed brown stool that was guaiac negative. Patient was seen hemodynamically stable with a relatively normal hemoglobin. Patient was deemed stable for outpatient workup and was given GI follow-up. - Diagnoses Provider Diagnoses: LLQ pain, Rectal bleeding, Mesenteric adenitis Discharge ED - Sign-Out/Discharge Documenting (check all that apply): Patient Departure - discharge - Discharge Plan Condition: Stable Disposition: HOME Patient Education Materials: Rectal Bleeding (ED), Abdominal Pain (ED), Mesenteric Adenitis (ED) Referrals: Cruz Eaton MD [Primary Care Provider] - 3 Days Narigs Lerma MD [Medical Doctor] - Additional Instructions: Call to set up a colonoscopy. Follow up with within 3 days and return to ED if rectal bleeding worsens, you feel like passing out, or if you have any other concerning symptoms. - Billing Disposition and Condition Condition: STABLE Disposition: Home - Attestation Statements Document Initiated by Chica: Yes Documenting Neilibe: ДМИТРИЙ NIEVES Provider For Whom Chica is Documenting (Include Credential): BETITO CABRERA MD Scribe Attestation: ДМИТРИЙ Auguste, scribed for BETITO CABRERA MD on 04/21/19 at 1828. Scribe Documentation Reviewed: Yes Provider Attestation: The documentation as recorded by the ДМИТРИЙ euceda accurately reflects the service I personally performed and the decisions made by me, BETITO CABRERA MD Status of Scribe Document: Viewed
[2019-04-21 14:11] LABS: ABS Eosinophils 0.2 10^3/ul (0-0.6); ABS Lymphocytes 2.4 10^3/ul (1.0-4.8); ABS Monocytes 0.4 10^3/ul (0-0.8); ABS Neutrophils 5.3 10^3/ul (1.5-7.7); Eosinophil % 2.3 %; Hematocrit 39 % (42-52); Hemoglobin 13.6 g/dL (14.0-18.0); Lymphocyte % 28.6 %; Mean Corpuscular HGB Conc 35 g/dL (31-36); Mean Corpuscular Hemoglobin 31 pg (27-31); Mean Corpuscular Volume 88 fL (80-94); Mean Platelet Volume 8.3 fL (7.4-10.4); Nucleated Red Blood Cells % 0.1; Platelet Count 297 10^3/uL (150-450); Red Blood Count 4.37 10^6 /uL (4.18-5.48); Red Cell Distribution Width 13 % (10-15); White Blood Count 8.2 10^3/uL (3.5-10.8)
[2019-04-21 14:28] LABS: Albumin 4.2 g/dL (3.2-5.2); Albumin/Globulin Ratio 1.8 (1-3); BUN/Creatinine Ratio 13.4 (8-20); Calcium 8.8 mg/dL (8.6-10.3); EGFR African American 112.3 (>60); EGFR Non-African American 92.8 (>60); Globulin 2.3 g/dL (2-4); Potassium 3.5 mmol/L (3.5-5.0); Total Bilirubin 0.3 mg/dL (0.2-1.0); Total Protein 6.5 g/dL (6.4-8.9)
[2019-04-21] MEDS ORDERED: Iohexol 300* (CONTRAST) 10 ML SDV IV ONE (14:35)
[2019-04-21 16:13] VITALS: BP 133/79
== END 2019-04-21 16:12 | disposition home or self-care (01) ==
LOC: ED 13:22
DX: R10.32 Left lower quadrant pain (principal); K62.5 Hemorrhage of anus and rectum; I88.0 Nonspecific mesenteric lymphadenitis; Z90.89 Acquired absence of other organs; Z88.8 Allergy status to other drugs, medicaments and biological substances; Z87.891 Personal history of nicotine dependence
CPT/HCPCS: 36415; 74177; 80053; 82270; 83605; 85025; 96361; 96374; 96376; 99283; J2270; Q9967

== ENCOUNTER 2019-04-21 17:38 | Emergency (ER) | payer BC ==
[2019-04-21 19:07] LABS: Hematocrit 41 % (42-52); Hemoglobin 14.2 g/dL (14.0-18.0); Mean Corpuscular HGB Conc 35 g/dL (31-36); Mean Corpuscular Hemoglobin 31 pg (27-31); Mean Corpuscular Volume 88 fL (80-94); Mean Platelet Volume 8.2 fL (7.4-10.4); Platelet Count 339 10^3/uL (150-450); Red Blood Count 4.64 10^6 /uL (4.18-5.48); Red Cell Distribution Width 14 % (10-15); White Blood Count 9.3 10^3/uL (3.5-10.8)
--- NOTE | 2019-04-21 19:38 | ED ---
GI/ HPI - HPI Summary HPI Summary: The patient is a 29 y/o male presenting to [facility] with a chief complaint of rectal pain and blood with stool for the last few hours. He reports that initially he had been at work and passed stool and noticed there was blood in the toilet. He then developed left-sided groin pain. He went to the bathroom again and noticed blood without the passing of stool. He endorses nausea and vomiting two days ago, but he attributes that to spicy food he ate, which he states that he is not supposed to eat secondary to a gastric ulcer. He was seen by Dr. Dixon in the ED earlier today for these symptoms, where he had a CT taken to show mesenteric adenitis, as well as results of negative stool occult, hemoglobin of 14.6 (now 14.2), and stable vital signs. After being discharged home, there was still rectal bleeding, warranting him to return to the ED. He denies any hematuria. PMHx: appendectomy, asthma. No issues of constipation. Former smoker, occasional EtOH, no substance use. Medications reviewed. Allergies noted. - History of Current Complaint Chief Complaint: EDRectalPain Time Seen by Provider: 04/21/19 19:30 Stated Complaint: RECTAL BLEEDING PER PT Hx Obtained From: Patient Onset/Duration: Started Hours Ago, Still Present Timing: Constant Severity: Moderate Current Severity: Moderate Pain Intensity: 0 Location of Pain: Groin - left Pain Characteristics: Sharp Associated Signs and Symptoms: Positive: Blood w/Stool, Other: - rectal bleeding with pain. Negative: Hematuria Aggravating Factor(s): Nothing Alleviating Factor(s): Nothing - Additional Pertinent History Primary Care Physician: [id number] - Allergy/Home Medications Allergies/Adverse Reactions: Allergies Allergy/AdvReac Type Severity Reaction Status Date / Time sucralfate AdvReac Intermediate Hives Verified 09/07/17 09:03 PMH/Surg Hx/FS Hx/Imm Hx Endocrine/Hematology History: Denies: Hx Diabetes Cardiovascular History: Denies: Hx Congestive Heart Failure, Hx Hypertension Respiratory History: Reports: Hx Asthma - as a child, no longer has, Hx Seasonal Allergies GI History: Reports: Other GI Disorders - HX OF ULCERS History: Denies: Hx Renal Disease Musculoskeletal History: Reports: Hx Arthritis - right knee, Hx Tendonitis - left knee - Surgical History Surgical History: Yes Surgery Procedure, Year, and Place: Appendectomy and lymphadenectomy - Immunization History Date of Tetanus Vaccine: unk Date of Influenza Vaccine: none Infectious Disease History: No Infectious Disease History: Denies: Traveled Outside the [place] in Last 30 Days - Family History Known Family History: Positive: Seizure Disorder, Other - CVA - Social History Alcohol Use: Occasionally Hx Substance Use: No Substance Use Type: Reports: None Hx Tobacco Use: Yes - chewing tobacco Smoking Status (MU): Former Smoker Review of Systems Positive: Abdominal Pain - left groin, Vomiting, Nausea, Other - rectal bleeding with pain Negative: hematuria All Other Systems Reviewed And Are Negative: Yes Physical Exam - Summary Physical Exam Summary: Constitutional: Well-developed, Well-nourished, Alert. (-) Distressed Skin: Warm, Dry HENT: Normocephalic; Atraumatic Eyes: Conjunctiva normal Neck: Musculoskeletal ROM normal neck. (-) JVD, (-) Stridor, (-) Nuchal rigidity Cardio: Rhythm regular, rate normal, Heart sounds normal; Intact distal pulses; Radial pulses are 2+ and symmetric. (-) Murmur Pulmonary/Chest wall: Effort normal. (-) Respiratory distress, (-) Wheezes, (-) Rales Abd: Soft, (-) tenderness, (-) Distension, (-) Guarding, (-) Rebound Musculoskeletal: (-) Edema Lymph: (-) Cervical adenopathy Neuro: Alert, Oriented x3 Psych: Mood and affect Normal Rectal: Scant red blood, nurse Nargis at bedside Triage Information Reviewed: Yes Vital Signs On Initial Exam: Initial Vitals Temp Pulse Resp BP Pulse Ox 97.8 F 80 18 138/84 98 04/21/19 17:45 04/21/19 17:45 04/21/19 17:45 04/21/19 17:45 04/21/19 17:45 Vital Signs Reviewed: Yes Procedures - Sedation Patient Received Moderate/Deep Sedation with Procedure: No Diagnostics - Vital Signs Vital Signs Temp Pulse Resp BP Pulse Ox 04/21/19 17:45 97.8 F 80 18 138/84 98 - Laboratory Lab Results: Lab Results 04/21/19 Range/Units 18:59 WBC 9.3 (3.5-10.8) 10^3/uL RBC 4.64 (4.18-5.48) 10^6 /uL Hgb 14.2 (14.0-18.0) g/dL Hct 41 L (42-52) % MCV 88 (80-94) fL MCH 31 (27-31) pg MCHC 35 (31-36) g/dL RDW 14 (10-15) % Plt Count 339 (150-450) 10^3/uL MPV 8.2 (7.4-10.4) fL Result Diagrams: 04/21/19 18:59 Lab Statement: Any lab studies that have been ordered have been reviewed, and results considered in the medical decision making process. Re-Evaluation - Re-Evaluation First Eval Re-Evaluation Time: 19:50 Comment: Discussed plan for d/c to f/u w GI Second Eval Re-Evaluation Time: 21:05 Change: Improved Comment: no signs of recurrent rectal bleeding, agreeable with d/c plan GIGU Course/Dx - Course Course Of Treatment: 29 y/o male tenting with rectal bleeding. Patient seen earlier, had CT scan showing mesenteric adenitis. Patient reports some continued bleeding. Hemoglobin stable. Vital signs stable. Patient only had small amount of blood in the ED after being observed for several hours. Rectal w /o obvious hemorrhoids. D/w patient return precautions. He'll follow-up with GI tomorrow. - Diagnoses Provider Diagnoses: Rectal bleeding - Physician Notifications Discussed Care Of Patient With: Nargis Lerma - gastroenterology Time Discussed With Above Provider: 19:45 Instructed by Provider To: Other - I discussed the patients case with Dr. Harman Diaz, who will call the patient tomorrow. Discharge ED - Sign-Out/Discharge Documenting (check all that apply): Patient Departure - Patient will be discharged home. - Discharge Plan Condition: Stable Disposition: HOME Patient Education Materials: Rectal Bleeding (ED) Referrals: Cruz Eaton MD [Primary Care Provider] - 3 Days Nargis Lerma MD [Medical Doctor] - 3 Days Additional Instructions: You were seen in the emergency department for rectal bleeding. Your blood counts are stable. We discussed your case with her on-call GI doctor who will call you tomorrow morning for an appointment. Please follow up with your primary care doctor in the next 2-3 days and return to the emergency department for worsening pain, bleeding, worsening or concerning symptoms. It was a pleasure taking care of you today. - Billing Disposition and Condition Condition: STABLE Disposition: Home - Attestation Statements Document Initiated by Chica: Yes Documenting Scribe: Lisa Thomas Provider For Whom Chica is Documenting (Include Credential): Dr. Seferino Pickard MD Scribe Attestation: I, Lisa Thomas, scribed for Dr. Seferino Pickard MD on 04/21/19 at 2114. Scribe Documentation Reviewed: Yes Provider Attestation: The documentation as recorded by the Lisa euceda accurately reflects the service I personally performed and the decisions made by me, Dr. Seferino Pickard MD Status of Scribe Document: Viewed
[2019-04-21 21:32] VITALS: BP 128/84
== END 2019-04-21 21:31 | disposition home or self-care (01) ==
LOC: ED 17:38
DX: K62.5 Hemorrhage of anus and rectum (principal); R11.2 Nausea with vomiting, unspecified; R10.9 Unspecified abdominal pain; Z87.891 Personal history of nicotine dependence
CPT/HCPCS: 36415; 82270; 85027; 99282

== ENCOUNTER 2023-03-10 14:03 | Observation (INO) ==
[2023-03-10 15:09] LABS: ABS Eosinophils 0.1 10^3/uL (0.0-0.5); ABS Lymphocytes 2.1 10^3/uL (1.0-4.8); ABS Monocytes 0.5 10^3/uL (0.0-1.1); ABS Neutrophils 5.7 10^3/uL (1.5-7.6); ABS Nucleated RBC 0.01 10^3/ul; Eosinophil % 1.8 %; Hematocrit 40.9 % (38-53); Hemoglobin 14.2 g/dL (13.2-16.3); Lymphocyte % 24.7 %; Mean Corpuscular Hemoglobin 31.3 pg (27-33); Mean Corpuscular Hgb Conc 34.6 g/dL (31-36); Mean Corpuscular Volume 90.3 fL (80-97); Mean Platelet Volume 8.2 fL (7.5-11.2); Nucleated Red Blood Cells % 0.1 %/100WBC (0.0-0.8); Platelet Count 357 10^3/uL (150-450); Red Blood Count 4.53 10^6/uL (4.06-5.63); Red Cell Distribution Width 13.3 % (12-17); White Blood Count 8.5 10^3/uL (3.6-10.2)
[2023-03-10] MEDS ORDERED: Pantoprazole 80 mg in NS BAG 80 MG/250 ML BAG IV ONE (15:23)
[2023-03-10 15:29] LABS: INR 0.99 (0.83-1.13)
[2023-03-10 15:35] LABS: ALT 21 U/L (7-52); AST 15 U/L (13-39); Albumin 4.4 g/dL (3.2-5.2); Albumin/Globulin Ratio 1.7 (1-3); Alkaline Phosphatase 56 U/L (35-149); Anion Gap 7 mmol/L (2-16); Blood Urea Nitrogen 6 mg/dL (6-24); CO2 Carbon Dioxide 27 mmol/L (22-32); Calcium 9.1 mg/dL (8.6-10.3); Chloride 107 mmol/L (101-111); Creatinine, Serum 1.07 mg/dL (0.67-1.17); Globulin 2.6 g/dL (2-4); Glucose 92 mg/dL (70-100); Potassium 3.8 mmol/L (3.5-5.0); Sodium 141 mmol/L (135-145); Total Bilirubin 0.3 mg/dL (0.2-1.0); eGFR CKD-EPI 95.7 (>60)
[2023-03-10 15:44] LABS: Alcohol, S < 13 mg/dL (<13)
[2023-03-10] MEDS ORDERED: Ondansetron 4 mg VIAL 2 MG/ML 2 ml VIAL IV PRN (17:16)
[2023-03-10] MEDS ORDERED: Pantoprazole VIAL 40 MG VIAL IV ONE (17:17)
[2023-03-11] MEDS ORDERED: NS 0.9% 1000 ml BAG 1,000 ML IV SCH (08:30)
[2023-03-11] MEDS ORDERED: Pantoprazole VIAL 40 MG VIAL IV SCH (09:00)
[2023-03-11] MEDS ORDERED: Ondansetron 4 mg VIAL 2 MG/ML 2 ml VIAL IV PRN (10:19)
[2023-03-11] MEDS ORDERED: Naloxone 0.4 mg VIAL 0.4 mg/ml 1 ml VIAL IV PRN (10:19)
[2023-03-11] MEDS ORDERED: fentaNYL 100 mcg/2 ml 50 MCG/ML VIAL IV PRN (10:19)
[2023-03-11] MEDS ORDERED: HYDROcodone/ACETAMIN 5/325 mg TAB PO PRN (10:19)
[2023-03-11] MEDS ORDERED: Metoclopramide 5 MG/ML VIAL (10 mg) IV PRN (10:19)
[2023-03-11] MEDS ORDERED: Lidocaine 2% PF 5 ML VIAL ONE (12:14)
[2023-03-11 13:09] VITALS: BP 132/78
== END 2023-03-11 16:20 | disposition home or self-care (01) ==
LOC: ED 14:03 → EDHOLD 14:03 → MED 21:50
PROVIDERS: ADMIT Hospitalist; ATTEND Hospitalist
PROC: O.GIEGD (2023-03-11 14:50)